=== PATIENT | female | born 1955 | race Two or more races ===

== ENCOUNTER 2024-02-15 17:42 | Emergency (ER) | payer OTHER ==
[~2024-02-15] VITALS: Ht 157.5 cm; Wt 61.7 kg
[~2024-02-15 17:42] MED LIST: ASPIR-TRIN325 MG PO; CALCIUM PO; CLONAZEPAM1 MG PO; LEVOXYL112 MCG PO; LISINOPRIL10 MG PO; OMEPRAZOLE20 M1 PO; ZOCOR20 MG PO; [UNRECOGNIZED DRUG - CODE] PO
[2024-02-15] MEDS ORDERED: BRILINTA60 MG PO (18:01)
[2024-02-15] MEDS ORDERED: FAMOtidine 200mg/20ml VIAL ONE (18:28)
[2024-02-15] MEDS ORDERED: FAMOtidine 10 MG/ML (4ML VIAL) IV ONE (18:30)
[2024-02-15] MEDS ORDERED: BENZONATATE 100 MG CAPSULE PO ONE (18:30)
[2024-02-15 19:03] LABS: HEMATOCRIT 35.9 % (36.0-45.00); HEMOGLOBIN 12.5 g/dL (12.0-15.00); MEAN CELL VOLUME 97.1 fL (80.00-100.00); MEAN CORPUSCULAR HEMOGLOBIN 33.8 pg (27.00-32.0); MEAN CORPUSCULAR HGB CONC 34.8 g/dl (32.0-36.0); PLATELET COUNT 355 K/uL (150-450); RED CELL DISTRIBUTION WIDTH 13.8 % (11.5-14.5)
[2024-02-15] MEDS ORDERED: MELATONIN5 M1 PO (20:06)
[2024-02-15] MEDS ORDERED: BENZONATATE200 M1 PO (20:06)
== END 2024-02-15 20:19 | disposition home or self-care (01) ==
LOC: ER 17:43
PROVIDERS: General Practice
DX: R10.13 Epigastric pain (principal); I25.2 Old myocardial infarction; E03.8 Other specified hypothyroidism; Z95.1 Presence of aortocoronary bypass graft; Z20.822 Contact with and (suspected) exposure to COVID-19
CPT/HCPCS: 36415; 71045; 96365; 99283; J3490

== ENCOUNTER 2024-04-27 09:54 | Emergency (ER) | payer OTHER ==
[~2024-04-27] VITALS: Ht 167.6 cm; Wt 70.3 kg
[~2024-04-27 09:54] MED LIST changes: +BENZONATATE200 M1 PO; +BRILINTA60 MG PO; +MELATONIN5 M1 PO
[2024-04-27] MEDS ORDERED: DEXAMETHASONE SODIUM PHOSPHATE 4 MG/ML VIAL IM ONE (11:30)
[2024-04-27] MEDS ORDERED: ACETAMINOPHEN 500 MG GEL..CAP PO ONE (11:30)
[2024-04-27] MEDS ORDERED: GUAIFENESIN 200 MG/10 ML BLIST.PACK PO ONE (11:30)
[2024-04-27 11:39] LABS: HEMATOCRIT 34.7 % (36.0-45.00); HEMOGLOBIN 11.8 g/dL (12.0-15.00); MEAN CORPUSCULAR HEMOGLOBIN 32.7 pg (27.00-32.0); MEAN CORPUSCULAR HGB CONC 34.1 g/dl (32.0-36.0); PLATELET COUNT 477 K/uL (150-450); RED BLOOD COUNT 3.61 M/uL (4.00-6.00); RED CELL DISTRIBUTION WIDTH 13.3 % (11.5-14.5)
== END 2024-04-27 13:22 | disposition home or self-care (01) ==
LOC: ER 09:55
PROVIDERS: General Practice
DX: R53.81 Other malaise (principal); J40 Bronchitis, not specified as acute or chronic; Z20.822 Contact with and (suspected) exposure to COVID-19; I10 Essential (primary) hypertension
CPT/HCPCS: 36415; 96372; 99282; J1100